=== PATIENT | male | born 1935 | race Caucasian/White ===

== ENCOUNTER → 2016-12-08 | Outpatient (CLI) | payer MEDICARE, BC ==
[2013-06-05 20:20] VITALS: BP 124/81
[~2016-12-08] MED LIST: ALBUTEROL0.83 MG/ML IH; ALDACTONE100 MG PO; ATROVENT I0.2 MG/1 M IH; BROVANA15 MCG/2 M IH; BUDESONIDE0.25 MG/2 IH; COMBIVENT INH14.7 GM IH; COUMADIN10 MG PO; DALIRESP500 MCG PO; SPIRIVA18 MCG IH; THEOPHYLLINE300 MG PO
[2016-12-08 16:51] LABS: EOS # 0.2 (0.04-0.40); EOS % 2.3 % (0.0-4.0); HEMATOCRIT 44.5 % (42.0-52.0); HEMOGLOBIN 15.8 g/dL (13.5-18.0); MEAN CELL VOLUME 84 fl (78-100); MEAN CORPUSCULAR HEMOGLOBIN 30 pg (27-31); MEAN CORPUSCULAR HGB CONC 36 g/dL (33-37); MEAN PLATELET VOLUME 9.8 fl (7.4-10.4); MONO # 0.7 (0.20-0.80); NEU # 6.4 (1.40-6.50); PLATELET COUNT 212 K/mm3 (130-400); RED BLOOD COUNT 5.33 M/mm3 (4.20-5.60); RED CELL DISTRIBUTION WIDTH 13.4 % (11.5-14.5); WHITE BLOOD COUNT 8.4 K/mm3 (4.8-10.8)
[2016-12-08 17:02] LABS: CALCIUM 9.4 mg/dL (8.4-10.2); POTASSIUM 4.1 mmol/L (3.6-5.0)
[2016-12-08 17:40] LABS: D-DIMER 0.4 mg/L FEU (0.15-0.50)
[2016-12-08 18:28] LABS: ERYTHROCYTE SEDIMENTATION RATE 16 mm/hr (0-20)
== END ==
LOC: LAB 15:55
PROVIDERS: Family Medicine
DX: M79.662 Pain in left lower leg (principal)

== ENCOUNTER 2021-08-11 16:58 | Observation (INO) | payer MEDICARE, BC ==
[~2021-08-11] VITALS: Ht 177.8 cm; Wt 89.4 kg
[~2021-08-11 16:58] MED LIST changes: -ALBUTEROL0.83 MG/ML IH; +ALBUTEROL2.5 MG/3 M IH; +ALDACTONE100 M1 PO; -ALDACTONE100 MG PO; +THEO-24 30300 MG/CAP PO; -THEOPHYLLINE300 MG PO
[2021-08-11 18:49] LABS: HEMATOCRIT 43.6 % (42.0-52.0); HEMOGLOBIN 14.8 g/dL (13.5-18.0); MEAN CELL VOLUME 85 fl (78-100); MEAN CORPUSCULAR HEMOGLOBIN 29 pg (27-31); MEAN CORPUSCULAR HGB CONC 34 g/dL (33-37); MEAN PLATELET VOLUME 9.3 fl (7.4-10.4); PLATELET COUNT 178 K/mm3 (130-400); RED BLOOD COUNT 5.14 M/mm3 (4.20-5.60); RED CELL DISTRIBUTION WIDTH 13.7 % (11.5-14.5); WHITE BLOOD COUNT 6.7 K/mm3 (4.8-10.8)
[2021-08-11 19:00] LABS: POTASSIUM 4.3 mmol/L (3.5-5.1)
[2021-08-11 19:03] LABS: CALCIUM 9.3 mg/dL (8.3-10.5)
[2021-08-11 19:05] LABS: TOTAL BILIRUBIN 0.5 mg/dL (0.2-1.2); TOTAL PROTEIN 6.8 g/dL (6.2-8.1)
[2021-08-11 19:27] LABS: NEUTROPHILS 85 % (42-75)
[2021-08-11 19:28] LABS: LYMPHOCYTE 6 % (20-51); MONOCYTE 9 % (3-10)
[2021-08-11 21:44] VITALS: BP 131/102
[2021-08-11] MEDS ORDERED: PRAVASTATIN SOD20 MG PO (22:28)
[2021-08-11] MEDS ORDERED: CLOPIDOGREL PO (22:28)
[2021-08-11] MEDS ORDERED: CARDIZEM120 M1 PO (22:29)
[2021-08-11] MEDS ORDERED: YUPELRI175 MCG/3 IH (22:32)
[2021-08-11] MEDS ORDERED: MAGNESIUM250 M1 PO (22:33)
[2021-08-11] MEDS ORDERED: ADULT ASPIRIN R81 MG PO (22:33)
[2021-08-11] MEDS ORDERED: DILTIAZEM 12HR120 MG PO (23:50)
[2021-08-11] MEDS ORDERED: CARDIZEM CD120 M1 PO (23:51)
[2021-08-12 02:22] VITALS: BP 142/88
[2021-08-12 06:09] VITALS: BP 147/91
[2021-08-12 09:35] VITALS: BP 140/89
[2021-08-12] MEDS ORDERED: XARELTO20 MG PO (12:20)
[2021-08-12] MEDS ORDERED: DILTIAZEM 24HR360 M1 PO (12:29)
== END 2021-08-12 13:59 | disposition home or self-care (01) ==
LOC: ED 16:58 → MED/SURG 20:22
PROVIDERS: ADMIT Physician Assistant
DX: U07.1 COVID-19 (principal); I48.91 Unspecified atrial fibrillation; I48.92 Unspecified atrial flutter; J44.9 Chronic obstructive pulmonary disease, unspecified; I10 Essential (primary) hypertension; Z99.81 Dependence on supplemental oxygen
CPT/HCPCS: G0378; J7030

== ENCOUNTER → 2021-08-12 | Outpatient (CLI) | payer MEDICARE, BC ==
[~2021-08-12] VITALS: Ht 177.8 cm; Wt 89.4 kg
[~2021-08-12] MED LIST changes: +ADULT ASPIRIN R81 MG PO; +CARDIZEM CD120 M1 PO; +CARDIZEM120 M1 PO; +CLOPIDOGREL PO; +DILTIAZEM 12HR120 MG PO; +DILTIAZEM 24HR360 M1 PO; +MAGNESIUM250 M1 PO; +PRAVASTATIN SOD20 MG PO; +XARELTO20 MG PO; +YUPELRI175 MCG/3 IH
[2021-08-12 14:10] VITALS: BP 118/77
[2021-08-12 15:08] VITALS: BP 131/82
== END ==
LOC: AMSURD 13:30
DX: U07.1 COVID-19 (principal)

== ENCOUNTER → 2022-12-07 | Outpatient (CLI) | payer MEDICARE, BC ==
[~2022-12-07] MED LIST changes: +RT ALBUTEROL CC18 GM IH; +SOTALOL HCL AF80 MG PO
== END ==
LOC: RAD 10:42
DX: J44.9 Chronic obstructive pulmonary disease, unspecified (principal); J90 Pleural effusion, not elsewhere classified